=== PATIENT | female | born 1960 | race Caucasian/White ===

== ENCOUNTER 2019-03-14 09:55 | Emergency (ER) | payer OTHER ==
[~2019-03-14] VITALS: Ht 160 cm; Wt 61.5 kg
[2019-03-14 10:02] VITALS: Ht 160 cm; Wt 61.5 kg
[2019-03-14] MEDS ORDERED: SOD CHLORIDE 0.9% 1,000 ML IV STA (10:31)
[2019-03-14] MEDS ORDERED: MECLIZINE 12.5 MG TAB PO ONE (11:00)
[2019-03-14] MEDS ORDERED: MECL12.574 PO (14:09)
[2019-03-14 14:18] VITALS: BP 118/76; PULSE 76; RESP 16
--- NOTE | 2019-03-14 15:35 | ERD ---
ER Documentation Chief Complaint Chief Complaint pt feels dizzy x3 days denies henry or visual problems HPI 59-year-old female presenting with dizziness x3 days. States that she feels unsteady and is having difficulty walking. She denies any chest pain or shortness of breath. Has an occasional headache. She did not denies any recent falls. She has not taken medications. This happened suddenly 2 days ago. Denies medical problems. NKDA. Surgical history bunion surgery. Social history denies. Patient states that she went to a restaurant and had excessive vomiting on Wednesday night but is unsure if that is related. ROS All systems reviewed and are negative except as per history of present illness. Medications Home Meds Active Scripts Meclizine Hcl* (Antivert*) 12.5 Mg Tab, 12.5 MG PO Q6H PRN for DIZZINESS, #20 TAB Prov:TWILA MACHADO PA-C 03/14/19 Allergies Allergies: Coded Allergies: No Known Allergy (Unverified , 03/14/19) PMhx/Soc Medical and Surgical Hx: pt denies Medical Hx, pt denies Surgical Hx Hx Alcohol Use: No Hx Substance Use: No FmHx Family History: No diabetes, No coronary disease, No other Physical Exam Vitals Vital Signs Date Temp Pulse Resp B/P (MAP) Pulse Ox O2 O2 Flow FiO2 Time Delivery Rate 03/14/19 98.1 76 16 118/76 98 Room Air 14:18 (90) 03/14/19 98.9 68 17 146/86 98 10:02 (106) Physical Exam GENERAL: The patient is well-appearing, well-nourished, in no acute distress HEENT: Atraumatic. Conjunctivae are pink. Pupils equal, round, and reactive to light. There is no scleral icterus. Tympanic membranes clear bilaterally. Oropharynx clear. CHEST: Clear to auscultation bilaterally. There are no rales, wheezes or rhonchi. HEART: Regular rate and rhythm. No murmurs, clicks, rubs or gallops. No S3 or S4. ABDOMEN:Soft, nontender and nondistended. Good bowel sounds. No rebound or guarding. No gross peritonitis. No gross organomegaly or masses. No Younger sign or McBurney point tenderness. NEUROLOGIC: Alert and oriented. Cranial nerves II through XII intact. Motor strength in all 4 extremities with 5 out of 5 strength. Sensation grossly intact. Normal speech and gait. SKIN: There is no apparent rash or petechiae. The skin is warm and dry. HEMATOLOGIC AND LYMPHATIC: There is no evidence of excessive bruising or lymphadenopathy. No gross cervical, axillary, or inguinal lymphadenopathy. Result Diagram: 03/14/19 1050 03/14/19 1050 Results 24 hrs Laboratory Tests Test 03/14/19 10:50 03/14/19 10:51 White Blood Count 10.2 10^3/ul Red Blood Count 4.70 10^6/ul Hemoglobin 13.2 g/dl Hematocrit 41.5 % Mean Corpuscular Volume 88.3 fl Mean Corpuscular Hemoglobin 28.1 pg Mean Corpuscular Hemoglobin Concent 31.8 g/dl Red Cell Distribution Width 13.5 % Platelet Count 345 10^3/UL Mean Platelet Volume 10.2 fl Immature Granulocytes % 0.300 % Neutrophils % 71.8 % Lymphocytes % 19.4 % Monocytes % 3.3 % Eosinophils % 4.6 % Basophils % 0.6 % Nucleated Red Blood Cells % 0.0 /100WBC Immature Granulocytes # 0.030 10^3/ul Neutrophils # 7.3 10^3/ul Lymphocytes # 2.0 10^3/ul Monocytes # 0.3 10^3/ul Eosinophils # 0.5 10^3/ul Basophils # 0.1 10^3/ul Nucleated Red Blood Cells # 0.0 10^3/ul Sodium Level 143 mmol/L Potassium Level 4.2 mmol/L Chloride Level 107 mmol/L Carbon Dioxide Level 25 mmol/L Anion Gap 11 Blood Urea Nitrogen 12 mg/dl Creatinine 0.89 mg/dl Est Glomerular Filtrat Rate mL/min > 60 mL/min Glucose Level 111 mg/dl Calcium Level 9.9 mg/dl Total Bilirubin 0.4 mg/dl Direct Bilirubin 0.00 mg/dl Indirect Bilirubin 0.4 mg/dl Aspartate Amino Transf (AST/SGOT) 37 IU/L Alanine Aminotransferase (ALT/SGPT) 22 IU/L Alkaline Phosphatase 69 IU/L Troponin I < 0.012 ng/ml Total Protein 7.6 g/dl Albumin 4.6 g/dl Globulin 3.00 g/dl Albumin/Globulin Ratio 1.53 Urine Color YELLOW Urine Clarity CLEAR Urine pH 5.0 Urine Specific [place] 1.014 Urine Ketones NEGATIVE mg/dL Urine Nitrite NEGATIVE mg/dL Urine Bilirubin NEGATIVE mg/dL Urine Urobilinogen NEGATIVE mg/dL Urine Leukocyte Esterase NEGATIVE Sheri/ul Urine Hemoglobin NEGATIVE mg/dL Urine Glucose NEGATIVE mg/dL Urine Total Protein NEGATIVE mg/dl Current Medications Medications Dose Sig/Parminder Start Time Status Last (Trade) Ordered Route PRN Stop Time Admin Dose Reason Admin Sodium 1,000 ml @ Q1H STAT 03/14/19 DC 03/14/19 Chloride 1,000 mls/hr IV 10:31 10:42 03/14/19 11:30 Meclizine 12.5 mg ONCE ONCE 03/14/19 DC 03/14/19 HCl PO 11:00 10:41 (Antivert) 03/14/19 11:01 Procedures/MDM DIAGNOSTIC IMAGING REPORT Patient: ANTONIO JIMENEZ : 1960 Age: 59 Sex: F MR #: [id number] DOS: 03/14/19 1031 Ordering MD: SARIKA MACHADO PA-C Location: [facility] Room/Bed: PROCEDURE: CT Brain without contrast. CLINICAL INDICATION: Headache TECHNIQUE: CT scan of the brain was performed on a multidetector high- resolution CT scan. Axial imaging was obtained of the brain without contrast administration. Coronal and sagittal reformatted images were obtained from the axial source images. Standard CT scan of the head without contrast protocols were performed. The total exam CTDI equals 39.64 mGy and the total exam DLP equals 554.95 mGy- cm. One or more of the following dose reduction techniques were used: - Automated exposure control. - Adjustment of the mA and/or kV according to patient size. Use of iterative reconstruction technique. Dicom images are available COMPARISON: None. FINDINGS: The ventricular system and peripheral CSF spaces are unremarkable. Midline retrocerebellar fluid collection measuring 3 x 2.2 cm consistent with an arachnoid cyst. No other intracranial masses. The torres-white matter differentiation is unremarkable. Mild chronic bilateral ethmoid sinus disease. Remainder the visualized paranasal sinuses and mastoids are unremarkable. The bones of the calvarium are intact. IMPRESSION: 1. Midline retrocerebellar 3 x 2.2 cm fluid collection consistent with an arachnoid cyst. No other intracranial masses. 2. No evidence intracranial hemorrhages. No midline shift. DIAGNOSTIC IMAGING REPORT Patient: ANTONIO JIMENEZ : 1960 Age: 59 Sex: F MR #: [id number] [facility] #: [id number] DOS: 03/14/19 1211 Ordering MD: NILDA YEUNG MD Location: [facility] Room/Bed: PROCEDURE: MRI Brain without contrast. CLINICAL INDICATION: Dizziness, headache TECHNIQUE: Multiplanar MRI of the brain without contrast was performed on a 3.0 T scanner with the following sequences obtained: T1-weighted, T2- weighted/FLAIR, diffusion weighted (with ADC map), GRE. COMPARISON: CT brain 03/14/2019 FINDINGS: No acute/recent ischemic infarction or intracranial hemorrhage / blood degradation products are identified. No extra-axial fluid collection is identified. Specifically no retrocerebellar extra-axial fluid collection/arachnoid cyst is confirmed. There is no mass effect. No midline shift is identified. The ventricles and sulci are within normal limits for size and configuration. Minimal areas of increased T2-weighted FLAIR signal intensity in the periventricular - deep white matter, nonspecific but likely reflect chronic small vessel ischemic changes. Flow voids are identified in the proximal intracranial arteries and dural sinuses suggesting patency. Mild-moderate right sphenoid sinus mucosal thickening, scattered partial bilateral ethmoid sinus opacification, and right maxillary sinus secretions with fluid level are seen. IMPRESSION: 1. No evidence of acute intracranial pathology. 2. Minimal chronic small vessel ischemic changes. 3. Paranasal sinus disease described above. MDM: 59-year-old female presenting with dizziness and unsteady gait. Dr. Alas was consulted. He was aware of normal MRI and requested patient to be seen outpatient in his clinic. Low suspicion for intracranial hemorrhage or neuro deficit. Patient's blood work is within normal limits. Patient does not have findings consistent with MRI and is discharged with strict ER precautions. I have considered stroke or cerebral hemorrhage. I have low suspicion for neuro deficit. All questions answered at discharge Departure Diagnosis: Primary Impression: Dizziness Condition: Stable Patient Instructions: Dizziness, Unk Cause Referrals: RAVI ALAS MD Additional Instructions: FOLLOW UP WITH YOUR PRIMARY CARE PHYSICIAN TOMORROW.Return to this facility if you are not improving as expected. TWILA MACHADO PA-C Mar 14, 2019 15:35
== END 2019-03-14 14:20 | disposition home or self-care (01) ==
LOC: FTE 09:55
DX: R42 Dizziness and giddiness (principal)
CPT/HCPCS: 36415; 70450; 70551; 80053; 81003; 84484; 85025; 93005; 96360; 99285; J7030